=== PATIENT | female | born 1990 | race Caucasian/White ===

== ENCOUNTER 2018-08-10 08:00 | Day surgery (SDC) | payer OTHER ==
[~2018-08-10 08:00] MED LIST: ACETAMINOPHEN 1,000 MG/100 ML RTUPB IV ONE; DEXAMETHASONE SOD PHOSPHATE INJ 4 MG/1 ML VIAL ONE; FENTANYL CITRATE INJ/PF 100 MCG/2 ML AMPUL ONE; MIDAZOLAM 2 MG/2 ML INJ ONE; ONDANSETRON HCL INJ/PF 4 MG/2 ML SDV ONE; PROPOFOL INJ 200 MG/20 ML VIAL IV ONE
[2018-08-10] MEDS ORDERED: BUPIVACAINE HCL 0.5 % INJ/PF 30 ML SDV ONE (08:46)
[2018-08-10 08:47] LABS: APPEARANCE,URINE CLOUDY; BILIRUBIN,URINE NEGATIVE (NEGATIVE); COLOR,URINE YELLOW; GLUCOSE, URINE NEGATIVE (NEGATIVE); KETONES,URINE NEGATIVE (NEGATIVE); LEUKOCYTE ESTERASE,URINE TRACE (NEGATIVE); NITRITE,URINE NEGATIVE (NEGATIVE); PROTEIN,URINE 30 mg/dL (NEGATIVE); URINE SPECIFIC GRAVITY 1.024
[2018-08-10 08:50] LABS: HEMATOCRIT 39.4 % (36.0-47.0); HEMOGLOBIN 13.7 g/dL (12.0-15.5); MEAN CORPUSCULAR HEMOGLOBIN 28.9 pg (27.0-33.4); MEAN CORPUSCULAR HGB CONC 34.8 g/dL (32.0-36.0); MEAN CORPUSCULAR VOLUME 83 fl (80-97); PLATELET COUNT 297 10^3/uL (150-450); RED BLOOD COUNT 4.75 10^6/uL (3.72-5.28); RED CELL DISTRIBUTION WIDTH 13.3 % (11.5-14.0); WHITE BLOOD COUNT 6.1 10^3/uL (4.0-10.5)
[2018-08-10] MEDS ORDERED: MORPHINE SULFATE 10 MG/ML INJ IV PRN (09:33)
[2018-08-10] MEDS ORDERED: ONDANSETRON HCL INJ/PF 4 MG/2 ML SDV IV PRN (09:33)
[2018-08-10] MEDS ORDERED: PROMETHAZINE HCL INJ 25 MG/1 ML VIAL IV PRN ×2 (09:33)
[2018-08-10] MEDS ORDERED: MEPERIDINE HCL/PF INJ 25 MG/1 ML DISP.SYRIN IV PRN (09:33)
[2018-08-10] MEDS ORDERED: DIPHENHYDRAMINE HCL 50 MG/ML VIAL IV PRN (09:33)
[2018-08-10] MEDS ORDERED: FENTANYL CITRATE INJ/PF 100 MCG/2 ML AMPUL IV PRN ×3 (09:33)
[2018-08-10] MEDS: METHYLENE BLUE 50 MG/10 ML AMPULE ONE ×2 (09:57→10:04)
[2018-08-10] MEDS ORDERED: CEFAZOLIN INJ 1 GM VIAL ONE (10:19)
--- NOTE | 2018-08-10 10:35 | OPERATIVE REPORT E ---
Operative Report NAME: DEVON KAUFMAN : 1990 AGE: 27Y DATE OF SURGERY: 08/10/2018 ROOM: PREOPERATIVE DIAGNOSIS: Pelvic pain. POSTOPERATIVE DIAGNOSIS: Pelvic pain plus adhesions and occluded left tube. OPERATION: Diagnostic laparoscopy with chromotubation. SURGEON: Tahir JACINTO M.D. ANESTHESIA: General. ESTIMATED BLOOD LOSS: Negligible. TISSUE REMOVED OR ALTERED: None. PROCEDURE: The patient was placed in dorsal lithotomy position, prepped, and draped in the usual sterile fashion. The cervix was visualized and grasped with a single-tooth tenaculum, sounded to a depth of 9 cm. The cervix was dilated and a HUMI uterine manipulator was placed. The subumbilical semilunar incision was then made. Prior to that the bladder was drained with the catheter. The laparoscope was introduced after insufflation of the abdomen. The right tube and ovary were surgically absent. On the left there was tubo-ovarian complex with adhesions and the tube appeared to be normal size but blunted at the fimbria. Attempt was made to place dye through the catheter and no spillage was noted. The tube was carefully dissected away from the uterus prior to the attempt. A second puncture was made above the umbilicus and a 5 was introduced, and adhesions were taken down again with sharp dissection. The laparoscope was then removed and the abdomen deflated. Trocar sleeves removed. The fascia was closed with 0 Vicryl and the skin with subcu 4-0 Vicryl. The HUMI manipulator was removed. The patient tolerated it well and was taken to recovery in good condition. DICTATING PHYSICIAN: Tahir JACINTO M.D. [id number] PHY#: [id number] ID: [id number] JOB#: [id number] ACCT: [id number] cc:Tahir JACINTO M.D. >
[2018-08-10] MEDS ORDERED: FENTANYL CITRATE INJ/PF 100 MCG/2 ML AMPUL ONE (10:48)
[2018-08-10] MEDS ORDERED: OXYCODONE-ACETAMINOPHEN 5-325 MG TABLET PO PRN (11:13)
[2018-08-10] MEDS ORDERED: IBUPROFEN 800 MG TABLET ONE (11:42)
[2018-08-10 12:51] VITALS: BP 139/106
[2018-08-10] MEDS ORDERED: ONDANSETRON 4 MG TAB.RAPDIS PO SCH (14:00)
[2018-08-10] MEDS ORDERED: IBUPROFEN 800 MG TABLET PO SCH (14:00)
[2018-08-10] MEDS ORDERED: NEOSTIGMINE METHYLSULFATE 10 MG/10 ML VIAL ONE (14:06)
[2018-08-10] MEDS ORDERED: VECURONIUM BROMIDE INJ 10 MG VIAL IV ONE (14:06)
[2018-08-10] MEDS ORDERED: SUCCINYLCHOLINE CHLORIDE INJ 200 MG/10 ML VIAL ONE (14:06)
[2018-08-10] MEDS ORDERED: GLYCOPYRROLATE 1 MG/5 ML SYRINGE ONE (14:06)
== END 2018-08-10 12:35 | disposition home or self-care (01) ==
LOC: OROUT 08:00
PROVIDERS: ATTEND Obstetrics & Gynecology Gynecology
DX: K66.0 Peritoneal adhesions (postprocedural) (postinfection) (principal); R10.2 Pelvic and perineal pain; D25.9 Leiomyoma of uterus, unspecified; N83.201 Unspecified ovarian cyst, right side; Z01.818 Encounter for other preprocedural examination
CPT/HCPCS: 36415; 85027; 81025; 81001; 49320; 58350; J2250; J3490 ×3; J0690; J1100; J3010; J0330; J2405; J2704; J0131; Q9968; 840

== ENCOUNTER → 2019-10-26 | Day surgery (SDC) | payer OTHER ==
[~2019-10-26] MED LIST changes: -ACETAMINOPHEN 1,000 MG/100 ML RTUPB IV ONE; +BUPIVACAINE HCL 0.5 % INJ/PF 30 ML SDV ONE; -DEXAMETHASONE SOD PHOSPHATE INJ 4 MG/1 ML VIAL ONE; -FENTANYL CITRATE INJ/PF 100 MCG/2 ML AMPUL ONE; +LIDOCAINE 1% INJ-PF (10 MG/ML) 30 ML SDV ONE; +LIDOCAINE 2% INJ (20 MG/ML) 20 ML MDV ONE; +METHYLPREDNISOLONE ACETATE INJ 40 MG/1 ML ML ONE; -MIDAZOLAM 2 MG/2 ML INJ ONE; -ONDANSETRON HCL INJ/PF 4 MG/2 ML SDV ONE; -PROPOFOL INJ 200 MG/20 ML VIAL IV ONE
--- NOTE | 2019-10-26 12:12 | Operative Report ---
PREOPERATIVE DIAGNOSIS: Lumbar Spondylosis without myelopathy POSTOPERATIVE DIAGNOSIS: Lumbar Spondylosis PROCEDURE: Radiofrequency Ablation of medial branches - RT L3 L4 dorsal primary ramus of L5. LT L3 L4 Dorsal primary ramus of L5. DATE OF PROCEDURE: October 26, 2019 ANESTHESIA: Local COMPLICATIONS: Patient with dizziness immediately post procedure. 500 mL fluid bolused with improvement in symptoms and vital signs. CONSENT: A full description of the procedure was provided including benefits as well as possible complications. All questions were answered and informed consent was given and signed. ASA guidelines for fasting were verified prior to sedation. PROCEDURE IN DETAIL The patient was brought into the fluoroscopy suite and positioned into the prone position on the fluoroscopy table and allowed to adjust to a position of comfort. A grounding pad was placed on the left thigh. The lumbar region was widely prepped with a chloraprep solution, allowed to air dry and draped in standard sterile surgical fashion. Local anesthesia was provided by 1 mL of 1 % lidocaine delivered with a 25 g needle. A 17g 75mm radiofrequency introducer needle was placed to the planned anatomic targets guided with intermittent fluoroscopy with a perpendicular approach to terminally place at the junction of the superior articular process and the transverse process of the right L4 L5 and the base of the sacral ala on the right for the L5 medial branch nerve. The stylets were removed and radiofrequency probes with a 4mm active tip were then inserted. Needle tip position of the probes was verified in the AP, oblique, and lateral views. At each site, the medial branch nerve was stimulated at 2 Hz to a maximum 1-2 volts determined to finalize safe needle and electrode placement. The patient was awake and responsive during this portion of the procedure. Each target was anesthetized with 1-2 mL of 2 % lidocaine for anesthesia for lesioning and then each target was lesioned at 80 degrees Celsius for 2 minutes and 30 seconds. Tissue impedences were noted to be between 250 and 500 Ohms. Electrodes were removed and each site was infiltrated with 1 mL of a mixture of 0.25% bup ivacaine with 40 mg of Depo-Medrol. [place] were removed. Attention was then turned to the opposite side with the procedure was performed in identical fashion. Bandages were placed over the needle placement sites, the patient then returned to the supine position on a stretcher and transported to the recovery room without hemodynamic, neurologic, or allergic reactions. Fluoroscopic images were printed for hard copy recording and digitally archived. POST PROCEDURE EVALUATION: The patient was comfortable in the recovery room. The patient is aware that pain may worsen before remitting and 4 - 6 weeks may be required prior to the onset of pain relief. IMPRESSION: 1. Technically successful bilateral L3 L4 L5 medial branch radiofrequency neurotomy for denervation without complication. 2. RTC in 2 weeks. 3. Estimated Blood Loss: 10 mL
== END ==
LOC: RAD 09:16
PROVIDERS: ATTEND Pain Medicine Interventional Pain Medicine
DX: M47.817 Spondylosis without myelopathy or radiculopathy, lumbosacral region (principal)
CPT/HCPCS: 64635; 64636; J3490 ×3; J1030